=== PATIENT | female | born 2000 | race Caucasian/White ===

== ENCOUNTER 2019-07-21 21:06 | Emergency (ER) | payer SELFPAY ==
[2019-07-21 21:43] LABS: Absolute Lymphocytes (CBC) 1.8 K/uL (0.7-4.9); Basophils % 0.3 % (0-1.3); Hematocrit 47.2 % (36.0-45.0); Lymphocytes % 17.6 % (15.3-44.8); MPV 9.1 fL (7.6-11.3); RBC Red Blood Cell Count 5.74 M/uL (3.86-4.86)
[2019-07-21] MEDS ORDERED: NA CHLORIDE 0.9% 1,000 ML ONE (21:43)
[2019-07-21] MEDS ORDERED: ONDANSETRON 4 MG/2 ML VIAL ONE (21:43)
[2019-07-21 21:45] LABS: Barbiturates NEGATIVE (NEGATIVE); Benzodiazepines NEGATIVE (NEGATIVE); Cocaine NEGATIVE (NEGATIVE); METHAMPHETAM NEGATIVE (NEGATIVE); Methadone NEGATIVE (NEGATIVE); Opiates NEGATIVE (NEGATIVE); Phencyclidine NEGATIVE (NEGATIVE); THC Cannibis POSITIVE (NEGATIVE)
[2019-07-21 21:46] LABS: Protime INR 1.11
[2019-07-21 22:04] LABS: Blood Morphology Comment NOT SEEN (NOT SEEN); Platelet Estimate ADEQ; Urine White Blood Cell Casts OK
[2019-07-21 22:08] LABS: ALT/SGPT 25 U/L (12-78); AST/SGOT 14 U/L (15-37); Albumin 4.3 g/dL (3.4-5.0); Alkaline Phosphatase 123 U/L (45-117); BUN Blood Urea Nitrogen 8 mg/dL (7-18); Bicarbonate 18 mmol/L (21-32); Bilirubin Direct 0.1 mg/dL (0-0.2); Bilirubin Total 0.5 mg/dL (0.2-1.0); Glucose Level 100 mg/dL (74-106); Potassium 3.7 mmol/L (3.5-5.1); Protein, Total 8.4 g/dL (6.4-8.2); Sodium Level 144 mmol/L (136-145)
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
--- NOTE | 2019-07-21 23:30 | EDPHYS ---
Physician Documentation [facility] Name: Reina Preston Age: 19 yrs Sex: Female : 2000 Arrival Date: 07/21/2019 Time: 21:11 Bed 14 Private MD: ED Physician Wei Duran HPI: 07/20 21:34 This 19 yrs old Female presents to ER via EMS with complaints of suicidal ariel ideation, depression. 21:34 The patient presents to the emergency department with anxiety, depression, over unknown ariel circumstances. Onset: The symptoms/episode began/occurred 2 day(s) ago. Past psychiatric history: Prior diagnosis: depression, Psychiatric medications include: Wellbutrin, Zoloft. Associated signs and symptoms: The patient has no apparent associated signs or symptoms. Severity of symptoms: At their worst the symptoms were moderate in the emergency department the symptoms have improved moderately. The patient has experienced similar episodes in the past, a few times. 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 - Social history:: Smoking status: Patient denies any tobacco usage or history of. ROS: 21:36 Constitutional: Negative for fever, chills, and weight loss, Eyes: Negative for injury, ariel pain, redness, and discharge, ENT: Negative for injury, pain, and discharge, Neck: Negative for injury, pain, and swelling, Cardiovascular: Negative for chest pain, palpitations, and edema, Respiratory: Negative for shortness of breath, cough, wheezing, and pleuritic chest pain, Abdomen/GI: Negative for abdominal pain, nausea, vomiting, diarrhea, and constipation, Back: Negative for injury and pain, : Negative for injury, bleeding, discharge, and swelling, MS/Extremity: Negative for injury and deformity, Skin: Negative for injury, rash, and discoloration, Neuro: Negative for headache, weakness, numbness, tingling, and seizure, Allergy/Immunology: Negative for hives, rash, and allergies, Endocrine: Negative for neck swelling, polydipsia, polyuria, polyphagia, and marked weight changes, Hematologic/Lymphatic: Negative for swollen nodes, abnormal bleeding, and unusual bruising. 21:36 Psych: Positive for anxiety, depression, suicidal ideation. Exam: 21:36 Constitutional: This is a well developed, well nourished patient who is awake, alert, ariel and in no acute distress. Head/Face: Normocephalic, atraumatic. Eyes: Pupils equal round and reactive to light, extra-ocular motions intact. Lids and lashes normal. Conjunctiva and sclera are non-icteric and not injected. Cornea within normal limits. Periorbital areas with no swelling, redness, or edema. ENT: Nares patent. No nasal discharge, no septal abnormalities noted. Tympanic membranes are normal and external auditory canals are clear. Oropharynx with no redness, swelling, or masses, exudates, or evidence of obstruction, uvula midline. Mucous membranes moist. Neck: Trachea midline, no thyromegaly or masses palpated, and no cervical lymphadenopathy. Supple, full range of motion without nuchal rigidity, or vertebral point tenderness. No Meningismus. Chest/axilla: Normal chest wall appearance and motion. Nontender with no deformity. No lesions are appreciated. Cardiovascular: Regular rate and rhythm with a normal S1 and S2. No gallops, murmurs, or rubs. Normal PMI, no JVD. No pulse deficits. Respiratory: Lungs have equal breath sounds bilaterally, clear to auscultation and percussion. No rales, rhonchi or wheezes noted. No increased work of breathing, no retractions or nasal flaring. Abdomen/GI: Soft, non-tender, with normal bowel sounds. No distension or tympany. No guarding or rebound. No evidence of tenderness throughout. Back: No spinal tenderness. No costovertebral tenderness. Full range of motion. Skin: Warm, dry with normal turgor. Normal color with no rashes, no lesions, and no evidence of cellulitis. MS/ Extremity: Pulses equal, no cyanosis. Neurovascular intact. Full, normal range of motion. Neuro: Awake and alert, GCS 15, oriented to person, place, time, and situation. Cranial nerves II-XII grossly intact. Motor strength 5/5 in all extremities. Sensory grossly intact. Cerebellar exam normal. Normal gait. 21:36 Psych: Behavior/mood is anxious, depressed, Affect is calm, Oriented to person, place, time, Patient has no thoughts/intents to harm self or others. Judgement / Insight is normal. Memory is normal. Delusions/hallucinations are not present. 21:53 ECG was reviewed by the Attending Physician. [facility] Vital Signs: 21:17 BP 133 / 90; Pulse 109; Resp 17 S; Temp 98.9(O); Pulse Ox 100% on R/A; Weight 95.25 kg jd3 (R); Height 5 ft. 5 in. (165.10 cm) (R); Pain 2/10; 21:17 Body Mass Index 34.95 (95.25 kg, 165.10 cm) jd3 MDM: 21:12 Patient medically screened. [facility] 21:38 Data reviewed: vital signs, nurses notes, lab test result(s), EKG. Data interpreted: [facility] nuclear monitoring technician: rate is 109 beats/min, rhythm is normal sinus rhythm, Pulse oximetry: on room air is 100 %. Test interpretation: by ED physician or midlevel provider: ECG. Counseling: I had a detailed discussion with the patient and/or guardian regarding: the historical points, exam findings, and any diagnostic results supporting the discharge/admit diagnosis, lab results. 23:26 Differential diagnosis: drug withdrawal. acute psychotic break, depression, psychosis ariel secondary to non-compliance. ED course: pt denies suicidal ideation, want to follow and ge help, has no plans to harm herself. 23:31 ED course: psych response team agrees with outpat follow up. [facility] 07/20 21:18 Order name: Acetaminophen; Complete Time: 23:20 [facility] 07/20 21:18 Order name: Basic Metabolic Panel; Complete Time: 23:20 [facility] 07/20 21:18 Order name: CBC with Diff; Complete Time: 23:20 [facility] 07/20 21:18 Order name: ETOH Level; Complete Time: 23:20 [facility] 07/20 21:18 Order name: Hepatic Function; Complete Time: 23:20 [facility] 07/20 21:18 Order name: PT-INR; Complete Time: 23:20 [facility] 07/20 21:18 Order name: Ptt, Activated; Complete Time: 23:20 [facility] 07/20 21:18 Order name: Salicylate; Complete Time: 23:20 [facility] 07/20 21:18 Order name: Urine Drug Screen; Complete Time: 23:20 [facility] 07/20 21:18 Order name: EKG; Complete Time: 21:19 [facility] 07/20 22:04 Order name: CBC Smear Scan; Complete Time: 23:20 [facility] 07/20 21:18 Order name: Urine Test (obtain specimen); Complete Time: 21:32 [facility] 07/20 21:18 Order name: EKG - Nurse/Tech; Complete Time: 21:32 [facility] 07/20 21:18 Order name: IV Saline Lock; Complete Time: 21:32 [facility] 07/20 21:18 Order name: Labs collected and sent; Complete Time: :32 [facility] 07/20 21:18 Order name: Urine Dipstick-Ancillary (obtain specimen); Complete Time: :32 [facility] 07/20 21:34 Order name: Misc. Order: call poison control; Complete Time: 22:11 [facility] EC:53 Rate is 84 beats/min. Rhythm is regular. QRS Trout is Normal. [place] interval is normal. QRS ariel interval is normal. QT interval is normal. No Q waves. T waves are Normal. No ST changes noted. Clinical impression: NSR w/ Non-specific ST/T Changes and No evidence of ischemia. Interpreted by me. Reviewed by me. Administered Medications: 21:40 Drug: NS 0.9% 1000 ml Route: IV; Rate: 1 bolus; Site: right antecubital; jd3 22:40 Follow up: Response: No adverse reaction; IV Status: Completed infusion; IV Intake: jd3 1000ml 21:40 Drug: Zofran (Ondansetron) 4 mg Route: IVP; Site: right antecubital; jd3 22:40 Follow up: Response: No adverse reaction jd3 Disposition: 07/21/19 23:28 Discharged to Home. Impression: Major depressive disorder, recurrent, Impulsiveness, Suicidal ideations - resolved. - Condition is Stable. - Discharge Instructions: Impulse Control Disorders, Suicidal Feelings: How to Help Yourself, Helping Someone Who is Suicidal, Stress and Stress Management, Major Depressive Disorder, [id number], Major Depressive Disorder. - Medication Reconciliation Form, Thank You Letter, Antibiotic Education, Prescription Opioid Use form. - Follow up: Private Physician; When: 2 - 3 days; Reason: Recheck today's complaints, Continuance of care, Re-evaluation by your physician. - Problem is new. - Symptoms have improved. Signatures: Dispatcher [employer] Wei Cortés MD MD cha Davies, Jonathon RN RN jd3 Celina Andrea RN RN ls4 Corrections: (The following items were deleted from the chart) 07/21 00:44 07/20 23:28 07/21/2019 23:28 Discharged to Home. Impression: Major depressive disorder, ls4 recurrent; Impulsiveness; Suicidal ideations - resolved. Condition is Stable. Forms are Medication Reconciliation Form, Thank You Letter, Antibiotic Education, Prescription Opioid Use. Follow up: Private Physician; When: 2 - 3 days; Reason: Recheck today's complaints, Continuance of care, Re-evaluation by your physician. Problem is new. Symptoms have improved. ariel
[2019-07-22 01:13] VITALS: BP 133/90; TEMP 98.9; O2SAT 100
--- NOTE | 2019-07-22 07:11 | EKG ---
Test Date: 2019-07-21 Test Time: 21:49:46 Housekeeping/Laundry Supervisor: OVIDIO MEASUREMENT RESULTS: Intervals: Rate: 84 AK: 124 QRSD: 84 QT: 388 QTc: 458 [place]: P: 15 AK: 124 QRS: 86 T: 10 INTERPRETIVE STATEMENTS: Normal sinus rhythm with sinus arrhythmia Cannot rule out Anterior infarct, age undetermined Abnormal ECG No previous ECG available for comparison Electronically Signed On 07-22-19 07:10:44 CDT by Bo Treviño
== END 2019-07-22 00:44 | disposition home or self-care (01) ==
LOC: ER 21:06
DX: F33.9 Major depressive disorder, recurrent, unspecified (principal); F41.9 Anxiety disorder, unspecified
CPT/HCPCS: 36415; 80048; 80076; 80307; 80320; 80329; 85025; 85610; 85730; 93005; 96361; 96374; 99285; J2405; J7030

== ENCOUNTER 2020-06-06 18:15 | Emergency (ER) | payer SELFPAY ==
--- OUTSIDE RECORDS SUMMARY | 2020-06-06 18:18 | XMS REPORT | Continuity of Care Document ---
:2000 Author Organization [facility] t Address [address] [place] [address] Care Team Providers Name Role Phone Luis Felipe MENDEZ Attending Clinician Unavailable Bernice Guallpa Attending Clinician Doctor Unassigned, Name Attending Clinician Unavailable Problems This patient has no known problems. Allergies, Adverse Reactions, Alerts This patient has no known allergies or adverse reactions. Medications This patient has no known medications. Procedures This patient has no known procedures. Encounters Start End Encounter Admission Attending Care Care Encounter Source Date/Time Date/Time Type Type Clinicians Facility Department ID 2019-11-22 2019-11-22 Telephone [place] [id number] 00:00:00 00:00:00 Wei VIERA [id number] 2019-11-21 2019-11-21 Emergency [place] [facility] [id number] 14:45:00 17:27:00 Bernice Dickey [id number] [place] [id number] [place] [id number] 2019-11-21 2019-11-21 Orders Doctor GLEZ [id number] 00:00:00 00:00:00 Only UnassignedMAXIMILIANO [id number] [place] [id number] 2019-04-20 2019-04-20 Orders Doctor [place] [id number] 00:00:00 00:00:00 Only Unassigned, MAXIMILIANO [id number] [place] [id number] 2018-09-18 2018-09-18 Patient Doctor [place] [id number] 00:00:00 00:00:00 Secure Msg Unassigned, MAXIMILIANO [id number] [place] [id number] 2018-09-18 2018-09-18 Patient Doctor [place] [id number] 00:00:00 00:00:00 Secure Msg Unassigned, MAXIMILIANO [id number] [id number] [id number] Results This patient has no known results.
--- NOTE | 2020-06-06 20:22 | EDPHYS ---
Physician Documentation [facility] Name: Reina Preston Age: 20 yrs Sex: Female : 2000 Arrival Date: 06/06/2020 Time: 18:42 Bed 19 Private MD: ED Physician Wei Duran HPI: 06/06 20:16 This 20 yrs old Female presents to ER via Ambulatory with complaints of ariel allergic reaction, hives. 20:16 The patient presents with rash, redness of skin. Onset: The symptoms/episode raiel began/occurred 2 day(s) ago. Associated signs and symptoms: The patient has no apparent associated signs or symptoms. Possible causes: The patient has no known obvious cause for the symptoms. At home the patient or guardian has treated the symptoms with Benadryl, steroids. Severity of symptoms: At their worst the symptoms were mild in the emergency department the symptoms are unchanged. The patient has not experienced similar symptoms in the past. 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 - Social history:: Smoking status: Patient reports the use of cigarette tobacco products, smokes one-half pack cigarettes per day. ROS: 20:17 Constitutional: Negative for fever, chills, and weight loss, Eyes: Negative for injury, ariel pain, redness, and discharge, ENT: Negative for injury, pain, and discharge, Neck: Negative for injury, pain, and swelling, Cardiovascular: Negative for chest pain, palpitations, and edema, Respiratory: Negative for shortness of breath, cough, wheezing, and pleuritic chest pain, Abdomen/GI: Negative for abdominal pain, nausea, vomiting, diarrhea, and constipation, Back: Negative for injury and pain, : Negative for injury, bleeding, discharge, and swelling, MS/Extremity: Negative for injury and deformity, Neuro: Negative for headache, weakness, numbness, tingling, and seizure, Psych: Negative for depression, anxiety, suicide ideation, homicidal ideation, and hallucinations, Allergy/Immunology: Negative for hives, rash, and allergies, Endocrine: Negative for neck swelling, polydipsia, polyuria, polyphagia, and marked weight changes, Hematologic/Lymphatic: Negative for swollen nodes, abnormal bleeding, and unusual bruising. 20:17 Skin: Positive for erythema, diffusely. Exam: 20:17 Constitutional: This is a well developed, well nourished patient who is awake, alert, ariel and in no acute distress. Head/Face: Normocephalic, atraumatic. Eyes: Pupils equal round and reactive to light, extra-ocular motions intact. Lids and lashes normal. Conjunctiva and sclera are non-icteric and not injected. Cornea within normal limits. Periorbital areas with no swelling, redness, or edema. ENT: Nares patent. No nasal discharge, no septal abnormalities noted. Tympanic membranes are normal and external auditory canals are clear. Oropharynx with no redness, swelling, or masses, exudates, or evidence of obstruction, uvula midline. Mucous membranes moist. Neck: Trachea midline, no thyromegaly or masses palpated, and no cervical lymphadenopathy. Supple, full range of motion without nuchal rigidity, or vertebral point tenderness. No Meningismus. Chest/axilla: Normal chest wall appearance and motion. Nontender with no deformity. No lesions are appreciated. Cardiovascular: Regular rate and rhythm with a normal S1 and S2. No gallops, murmurs, or rubs. Normal PMI, no JVD. No pulse deficits. Respiratory: Lungs have equal breath sounds bilaterally, clear to auscultation and percussion. No rales, rhonchi or wheezes noted. No increased work of breathing, no retractions or nasal flaring. Abdomen/GI: Soft, non-tender, with normal bowel sounds. No distension or tympany. No guarding or rebound. No evidence of tenderness throughout. Back: No spinal tenderness. No costovertebral tenderness. Full range of motion. Female : Normal external genitalia. MS/ Extremity: Pulses equal, no cyanosis. Neurovascular intact. Full, normal range of motion. Neuro: Awake and alert, GCS 15, oriented to person, place, time, and situation. Cranial nerves II-XII grossly intact. Motor strength 5/5 in all extremities. Sensory grossly intact. Cerebellar exam normal. Normal gait. Psych: Awake, alert, with orientation to person, place and time. Behavior, mood, and affect are within normal limits. 20:17 Skin: Appearance: Color: normal in color, Temperature: normal temperature, Moisture: normal moisture, petechiae, not noted, ecchymosis, not noted, flushing, not noted, diaphoresis is not appreciated, swelling, is not appreciated. Vital Signs: 18:42 BP 141 / 99; Pulse 91; Resp 16 S; Temp 98.5(O); Pulse Ox 100% on R/A; Weight 90.72 kg ca1 (R); Height 5 ft. 5 in. (165.10 cm) (R); 20:54 BP 126 / 80; Pulse 80; Resp 18; Temp 98; Pulse Ox 100% on R/A; mg2 18:42 Body Mass Index 33.28 (90.72 kg, 165.10 cm) ca1 MDM: 19:13 Patient medically screened. [facility] 06/06 20:40 Order name: Urine Dipstick-Ancillary [facility] 06/06 20:09 Order name: Urine Dipstick-Ancillary (obtain specimen); Complete Time: 20:40 [facility] 06/06 20:09 Order name: Urine Test (obtain specimen); Complete Time: 20:40 [facility] Administered Medications: 20:31 Drug: Benadryl (diphenhydrAMINE) 25 mg Route: PO; mg2 20:54 Follow up: Response: No adverse reaction mg2 20:32 Drug: Decadron (dexamethasone) 10 mg Route: IM; Site: left deltoid; mg2 20:54 Follow up: Response: No adverse reaction mg2 20:32 Drug: Pepcid (famotidine) 40 mg Route: PO; mg2 20:54 Follow up: Response: No adverse reaction mg2 Disposition: 06/06/20 20:21 Discharged to Home. Impression: Urticaria, Allergy status, other than to drugs and biological substances. - Condition is Stable. - Discharge Instructions: Allergies, Adult, Hives, Hives, [id number]. - Prescriptions for dexamethasone 2 mg Oral tablet - take 1 tablet by ORAL route 2 times per day; 10 tablet. Hydroxyzine HCl 25 mg Oral Tablet - take 1 tablet by ORAL route every 6 hours As needed; 30 tablet. Pepcid 20 mg Oral Tablet - take 1 tablet by ORAL route every 12 hours for 10 days; 20 tablet. EpiPen 0.3 mg Injection auto- injector - inject 1 pen by INTRAMUSCULAR route once daily Inject into the outer portion of the thigh, through clothing if necessary. Indicated in the emergency treatment of allergic reactions; 1 Cartridge. - Medication Reconciliation Form, Thank You Letter, Antibiotic Education, Prescription Opioid Use form. - Follow up: Private Physician; When: 2 - 3 days; Reason: Recheck today's complaints, Continuance of care, Re-evaluation by your physician. Follow up: Tim Grijalva MD; When: 2 - 3 days; Reason: Recheck today's complaints, Continuance of care, Re-evaluation by your physician. - Problem is new. - Symptoms have improved. Signatures: Dispatcher [employer] EDMS Wei Duran MD MD cha Gardose, Michele RN RN mg2 Kemi Montano RN RN ca1 Corrections: (The following items were deleted from the chart) 20:55 20:21 06/06/2020 20:21 Discharged to Home. Impression: Urticaria; Allergy status, other mg2 than to drugs and biological substances. Condition is Stable. Forms are Medication Reconciliation Form, Thank You Letter, Antibiotic Education, Prescription Opioid Use. Follow up: Private Physician; When: 2 - 3 days; Reason: Recheck today's complaints, Continuance of care, Re-evaluation by your physician. Follow up: Tim Grijalva; When: 2 - 3 days; Reason: Recheck today's complaints, Continuance of care, Re-evaluation by your physician. Problem is new. Symptoms have improved. ariel
--- NOTE | 2020-06-06 20:22 | ER ---
Nurse's Notes [facility] Name: Reina Preston Age: 20 yrs Sex: Female : 2000 Arrival Date: 06/06/2020 Time: 18:42 Bed 19 Private MD: Diagnosis: Urticaria;Allergy status, other than to drugs and biological substances Presentation: 06/06 18:42 Chief complaint: Patient states: Whelps on chest, abdomen and pubic area since ca1 yesterday. I don't know what caused it. Coronavirus screen: Client denies travel out of the [place] in the last 14 days. At this time, the client does not indicate any symptoms associated with coronavirus-19. Ebola Screen: Patient negative for fever greater than or equal to 101.5 degrees Fahrenheit, and additional compatible Ebola Virus Disease symptoms Patient denies exposure to infectious person. Patient denies travel to an Ebola-affected area in the 21 days before illness onset. No symptoms or risks identified at this time. Initial Sepsis Screen: Does the patient meet any 2 criteria? No. Patient's initial sepsis screen is negative. Does the patient have a suspected source of infection? No. Patient's initial sepsis screen is negative. Risk Assessment: Do you want to hurt yourself or someone else? Patient reports no desire to harm self or others. Onset of symptoms was June 06, 2020. 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 - Social history:: Smoking status: Patient reports the use of cigarette tobacco products, smokes one-half pack cigarettes per day. Screenin:34 Abuse screen: Denies threats or abuse. Denies injuries from another. Nutritional mg2 screening: No deficits noted. Tuberculosis screening: No symptoms or risk factors identified. Fall Risk None identified. Assessment: 20:00 General: Appears in no apparent distress. comfortable, Behavior is calm, cooperative. mg2 Pain: Denies pain. Neuro: Level of Consciousness is awake, alert, obeys commands, Oriented to person, place, time, situation. Cardiovascular: Capillary refill < 3 seconds Patient's skin is warm and dry. Respiratory: Airway is patent Respiratory effort is even, unlabored, Respiratory pattern is regular, symmetrical. GI: No signs and/or symptoms were reported involving the gastrointestinal system. : No signs and/or symptoms were reported regarding the genitourinary system. EENT: No signs and/or symptoms were reported regarding the EENT system. Derm: Rash noted that is red, raised, on chest and abdomen hives. Musculoskeletal: Circulation, motion, and sensation intact. Capillary refill < 3 seconds. 20:54 Reassessment: Patient appears in no apparent distress at this time. Patient is alert, mg2 oriented x 3, equal unlabored respirations, skin warm/dry/pink. Vital Signs: 18:42 BP 141 / 99; Pulse 91; Resp 16 S; Temp 98.5(O); Pulse Ox 100% on R/A; Weight 90.72 kg ca1 (R); Height 5 ft. 5 in. (165.10 cm) (R); 20:54 BP 126 / 80; Pulse 80; Resp 18; Temp 98; Pulse Ox 100% on R/A; mg2 18:42 Body Mass Index 33.28 (90.72 kg, 165.10 cm) ca1 ED Course: 18:42 Patient arrived in ED. ca1 18:43 Triage completed. ca1 18:44 Arm band placed on right wrist. ca1 19:12 Piero Goodwin, ANDREA is Primary Nurse. mg2 19:13 Wei Duran MD is Attending Physician. ariel 20:21 Tim Grijalva MD is Referral Physician. ariel 20:40 Patient has correct armband on for positive identification. mg2 20:40 No provider procedures requiring assistance completed. Patient did not have IV access mg2 during this emergency room visit. Administered Medications: 20:31 Drug: Benadryl (diphenhydrAMINE) 25 mg Route: PO; mg2 20:54 Follow up: Response: No adverse reaction mg2 20:32 Drug: Decadron (dexamethasone) 10 mg Route: IM; Site: left deltoid; mg2 20:54 Follow up: Response: No adverse reaction mg2 20:32 Drug: Pepcid (famotidine) 40 mg Route: PO; mg2 20:54 Follow up: Response: No adverse reaction mg2 Outcome: 20:21 Discharge ordered by . ariel 20:55 Discharged to home ambulatory. mg2 20:55 Condition: stable 20:55 Discharge instructions given to patient, Instructed on discharge instructions, follow up and referral plans. medication usage, Demonstrated understanding of instructions, follow-up care, medications, Prescriptions given X 4. 20:55 Patient left the ED. mg2 Signatures: Wei Duran MD MD cha Gardose, Michele, RN RN mg2 Kemi Montano RN RN ca1
[2020-06-06 20:40] LABS: Urine Blood Negative (Negative); Urine Glucose Negative (Negative); Urine Protein Negative (Negative); Urine Specific Gravity >=1.030 (1.005-1.030); Urine pH 5.5 (5.0-7.0)
[2020-06-06] MEDS ORDERED: DIPHENHYDRAMINE 25 MG TAB/CAP ONE (20:43)
[2020-06-06] MEDS ORDERED: FAMOTIDINE 20 MG TAB ONE (20:44)
[2020-06-06] MEDS ORDERED: dexAMETHasone 10 MG/ML VIAL ONE (20:44)
[2020-06-06 21:57] LABS: Urine Specific Gravity/Preg >1.030 (1.005-1.030)
[2020-06-07 11:01] VITALS: O2SAT 100
[2020-06-07 11:06] VITALS: BP 126/80; TEMP 98
== END 2020-06-06 20:55 | disposition home or self-care (01) ==
LOC: ER 18:15
DX: L50.9 Urticaria, unspecified (principal); F17.210 Nicotine dependence, cigarettes, uncomplicated; Z91.09 Other allergy status, other than to drugs and biological substances
CPT/HCPCS: 81003; 81025; 96372; 99283; J1100

== ENCOUNTER 2020-06-07 18:51 | Emergency (ER) | payer SELFPAY ==
--- OUTSIDE RECORDS SUMMARY | 2020-06-07 18:53 | XMS REPORT | Continuity of Care Document ---
:2000 Author Organization [facility] t Address [address] [place] [address] Care Team Providers Name Role Phone Luis [...] 2019-11-22 2019-11-22 Telephone NE[place]ON Briscoe [id number] 00:00:00 00:00:00 Wei VIERA [id number] [place] [phone] [id number] 2019-11-21 2019-11-21 Emergency [place] [facility] [id number] 14:45:00 17:27:00 Bernice Dickey [id number] [place] [id number] [place] [phone] [id number] 2019-11-21 2019-11-21 Orders Doctor GLEZ [id number] 00:00:00 00:00:00 Only UnassignedMAXIMILIANO [id number] [place] [phone] [id number] 2019-04-20 2019-04-20 Orders Doctor NEWTON [id number] 00:00:00 00:00:00 Only Unassigned, MAXIMILIANO [id number] [id number] [phone] [id number] 2018-09-18 2018-09-18 Patient Doctor NE[place]ON [id number] 00:00:00 00:00:00 Secure Msg Unassigned, MAXIMILIANO [id number] [id number] [id number] 2018-09-18 2018-09-18 Patient Doctor NE[place]ON [id number] 00:00:00 00:00:00 Secure Msg Unassigned, MAXIMILIANO [id number] [phone] [id number] Results This patient has no known results.
--- NOTE | 2020-06-07 19:11 | ER ---
Nurse's Notes [facility] Name: Reina Preston Age: 20 yrs Sex: Female : 2000 Arrival Date: 06/07/2020 Time: 18:53 Bed Waiting Private MD: Diagnosis: Presentation: 06/07 19:02 Chief complaint: Patient states: High BP today, Highest BP 173/114. Reports face ca1 feeling hot. Coronavirus screen: Client denies travel out of the [place] in the last 14 days. At this time, the client does not indicate any symptoms associated with coronavirus-19. Ebola Screen: Patient negative for fever greater than or equal to 101.5 degrees Fahrenheit, and additional compatible Ebola Virus Disease symptoms Patient denies exposure to infectious person. Patient denies travel to an Ebola-affected area in the 21 days before illness onset. No symptoms or risks identified at this time. Initial Sepsis Screen: Does the patient meet any 2 criteria? No. Patient's initial sepsis screen is negative. Does the patient have a suspected source of infection? No. Patient's initial sepsis screen is negative. Risk Assessment: Do you want to hurt yourself or someone else? Patient reports no desire to harm self or others. Onset of symptoms was June 07, 2020. 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 - Social history:: Smoking status: Patient reports the use of cigarette tobacco products, smokes one-half pack cigarettes per day. Assessment: 19:06 Reassessment: I am just going to go home since my BP is okay now. Pt instructed on ca1 proper taking of BP. Vital Signs: 19:02 BP 147 / 80; Pulse 92; Resp 16 S; Temp 98.6(TE); Pulse Ox 100% on R/A; Weight 90.72 kg ca1 (R); Height 5 ft. 5 in. (165.10 cm) (R); Pain 0/10; 19:02 Body Mass Index 33.28 (90.72 kg, 165.10 cm) ca1 ED Course: 18:53 Patient arrived in ED. as 19:04 Triage completed. ca1 19:05 Arm band placed on right wrist. ca1 Administered Medications: No medications were administered Outcome: 19:11 Patient left the ED. ca1 Signatures: Carol Jung Cheryl, RN RN ca1
[2020-06-07 22:19] VITALS: BP 147/80; TEMP 98.6; O2SAT 100
== END 2020-06-07 19:11 | disposition left against medical advice (07) ==
LOC: ER 18:51
DX: I10 Essential (primary) hypertension (principal); F41.9 Anxiety disorder, unspecified; F32.9 Major depressive disorder, single episode, unspecified; F17.210 Nicotine dependence, cigarettes, uncomplicated
CPT/HCPCS: 99281